=== PATIENT | male | born 1995 | race Caucasian/White ===

== ENCOUNTER 2016-07-19 02:23 | Emergency (ER) | payer BC ==
[~2016-07-19] VITALS: Ht 185.4 cm; Wt 73.5 kg
[2016-07-19 02:24] VITALS: BP 126/80
[2016-07-19] MEDS ORDERED: BACITRACIN ZINC OINT 500U/GM, 0.9 GM ONE (03:16)
== END 2016-07-19 03:35 | disposition home or self-care (01) ==
LOC: ED 03:29
DX: S71.151A Open bite, right thigh, initial encounter (principal); W54.0XXA Bitten by dog, initial encounter; Y93.89 Activity, other specified; Y99.8 Other external cause status; Y92.009 Unspecified place in unspecified non-institutional (private) residence as the place of occurrence of the external cause
CPT/HCPCS: 99283

== ENCOUNTER 2016-07-19 13:14 | Emergency (ER) | payer BC ==
[~2016-07-19] VITALS: Ht 185.4 cm; Wt 72.8 kg
[2016-07-19 13:16] VITALS: BP 109/73
[2016-07-19] MEDS ORDERED: BACITRACIN ZINC OINT 500U/GM, 0.9 GM ONE (13:56)
== END 2016-07-19 14:05 | disposition home or self-care (01) ==
LOC: ED 13:34
DX: S71.151D Open bite, right thigh, subsequent encounter (principal); W54.0XXD Bitten by dog, subsequent encounter
CPT/HCPCS: 99281; 99282

== ENCOUNTER 2016-07-27 21:07 | Emergency (ER) | payer BC ==
[~2016-07-27] VITALS: Ht 185.4 cm; Wt 73.0 kg
[2016-07-27 21:11] VITALS: BP 104/63
== END 2016-07-27 22:28 | disposition home or self-care (01) ==
LOC: ED 21:58
DX: S71.151D Open bite, right thigh, subsequent encounter (principal); W54.0XXD Bitten by dog, subsequent encounter

== ENCOUNTER 2016-08-19 09:44 | Emergency (ER) | payer BC ==
[~2016-08-19] VITALS: Ht 185.4 cm; Wt 72.4 kg
[2016-08-19] MEDS ORDERED: SODIUM CHLORIDE 0.9% 1,000 ML IV ONE (10:24)
[2016-08-19] MEDS ORDERED: HYDROmorphone 1 MG/ML, 1ML IVPush PRN (10:30)
[2016-08-19] MEDS ORDERED: SODIUM CHLORIDE FLUSH 10ML SYR IVF ONE (10:30)
[2016-08-19] MEDS ORDERED: SODIUM CHLORIDE 0.9% 1,000ML IVBOLUS ONE (10:30)
[2016-08-19] MEDS ORDERED: ONDANSETRON 2MG/ML, 2ML IVPush ONE (10:30)
[2016-08-19 11:07] LABS: ASPARTATE AMINO TRANSFERASE 9 U/L (15-37); BLOOD UREA NITROGEN 17 mg/dL (7-18)
[2016-08-19] MEDS ORDERED: ONDANSETRON 2MG/ML, 2ML ONE (11:20)
[2016-08-19] MEDS ORDERED: HYDROmorphone 1 MG/ML, 1ML ONE (11:20)
[2016-08-19 11:31] VITALS: BP 111/67
== END 2016-08-19 12:17 | disposition home or self-care (01) ==
LOC: ED 11:16
DX: K80.50 Calculus of bile duct without cholangitis or cholecystitis without obstruction (principal); R11.2 Nausea with vomiting, unspecified
CPT/HCPCS: 36415; 76700; 80053; 81003; 83690; 85025; 96361; 96374; 96375; 99285; J1170; J2405; J7030